=== PATIENT | male | born 1970 | race Caucasian/White ===

== ENCOUNTER 2021-05-13 06:52 | Day surgery (SDC) | payer BC ==
[2021-05-04 12:59] VITALS: BMI 37.3
[2021-05-13] MEDS ORDERED: MIDAZOLAM HCL 2 MG/2 ML SINGLE DOSE VIAL ONE (08:31)
[2021-05-13] MEDS ORDERED: PROPOFOL 20 ML ONE (08:31)
[2021-05-13] MEDS ORDERED: LIDOCAINE HCL 1%, 10 MG/ML (20ML VIAL) ONE (08:51)
[2021-05-13] MEDS ORDERED: DEXAMETHASONE SOD PHOSPHATE 4 MG/1 ML VIAL ONE (09:50)
[2021-05-13] MEDS ORDERED: ONDANSETRON 4 MG/2 ML VIAL ONE (09:50)
[2021-05-13 09:59] VITALS: TEMP 97.9
[2021-05-13 10:53] VITALS: BP 124/90; PULSE 64
== END 2021-05-13 10:35 | disposition home or self-care (01) ==
LOC: FASU 06:52
PROVIDERS: ATTEND Orthopaedic Surgery
PROC: 0JBD0ZZ Excision of Right Upper Arm Subcutaneous Tissue and Fascia, Open Approach (ICD-10-PCS; 2021-05-13)
PROC: 0LN30ZZ Release Right Upper Arm Tendon, Open Approach (ICD-10-PCS; principal; 2021-05-13 09:05)
DX: M77.11 Lateral epicondylitis, right elbow (principal)
CPT/HCPCS: 82962